=== PATIENT | male | born 1975 | race Two or more races ===

== ENCOUNTER 2023-07-28 11:16 | Emergency (ER) | payer MEDICAID, OTHER ==
[~2023-07-28] VITALS: Ht 157.5 cm; Wt 60.7 kg
[2023-07-28] MEDS ORDERED: LORA10CA PO (14:48)
[2023-07-28] MEDS ORDERED: BENZ100C97 PO (14:48)
[2023-07-28 14:58] VITALS: BP 123/78; PULSE 80; RESP 16; TEMP 98.4; O2SAT 97
[2023-07-28] MEDS: DexAMETHasone SOD PHOS 10MG/1ML VIAL INJ IM ONE (14:58)
== END 2023-07-28 15:09 | disposition home or self-care (01) ==
LOC: ER 11:16
DX: J39.8 Other specified diseases of upper respiratory tract (principal)
CPT/HCPCS: 71046; 96372; 99283; J1100

== ENCOUNTER 2023-11-17 10:54 | Emergency (ER) | payer MEDICAID ==
[~2023-11-17] VITALS: Ht 165.1 cm; Wt 58.4 kg
[~2023-11-17 10:54] MED LIST: BENZ100C97 PO; LORA10CA PO
[2023-11-17 11:46] VITALS: BP 111/80; PULSE 84; RESP 16; TEMP 98.3; O2SAT 98
[2023-11-17 11:56] LABS: Urine Bacteria None Seen /hpf (None Seen)
[2023-11-17 12:22] LABS: Urine Blood Negative /uL (Negative); Urine Clarity Clear (Clear); Urine Color Yellow (Yellow); Urine Mucus FEW (None Seen); Urine Protein, UAD Negative (Negative); Urine Specific Gravity 1.023 (1.001-1.035); Urine Urobilinogen Normal (Negative); Urine WBC 1 /hpf (0 - 3); Urine pH 6.5 (5.0-9.0)
[2023-11-17] MEDS: KETOROLAC TROMETH 60MG/2ML VIAL IM ONE (12:48)
[2023-11-17] MEDS ORDERED: NAPR-746 PO (12:54)
[2023-11-17] MEDS ORDERED: BACL10TA PO (12:54)
== END 2023-11-17 12:44 | disposition home or self-care (01) ==
LOC: ER 10:54
DX: S39.012A Strain of muscle, fascia and tendon of lower back, initial encounter (principal); N50.811 Right testicular pain; X58.XXXA Exposure to other specified factors, initial encounter; Y93.89 Activity, other specified; Y92.89 Other specified places as the place of occurrence of the external cause; Y99.8 Other external cause status
CPT/HCPCS: 76870; 81001; 96372; 99285; J1885